=== PATIENT | male | born 1955 | race Caucasian/White ===

== ENCOUNTER 2016-08-17 00:48 | Emergency (ER) | payer MEDICAID ==
[~2016-08-17] VITALS: Ht 172.7 cm; Wt 112.5 kg
[2016-08-17 01:02] VITALS: BP 153/85
[2016-08-17] MEDS ORDERED: COLCHICINE 0.6 MG TABLET PO STA (01:38)
[2016-08-17] MEDS ORDERED: OXYcodone/APAP 5/325MG TABLET ONE (01:54)
[2016-08-17] MEDS ORDERED: COLC0.6T37 PO (01:58)
[2016-08-17] MEDS ORDERED: PRED5TAB19 PO (01:58)
[2016-08-17] MEDS ORDERED: OXYC-302 PO (01:58)
[2016-08-17] MEDS ORDERED: OXYcodone/APAP 5/325MG TABLET PO ONE (02:00)
== END 2016-08-17 02:32 | disposition home or self-care (01) ==
LOC: ED 02:01
DX: M10.00 Idiopathic gout, unspecified site (principal); M13.0 Polyarthritis, unspecified
CPT/HCPCS: 99284; J7512

== ENCOUNTER 2016-08-31 01:04 | Emergency (ER) | payer MEDICAID ==
[~2016-08-31] VITALS: Ht 175.3 cm; Wt 113.8 kg
[~2016-08-31 01:04] MED LIST: COLC0.6T37 PO; OXYC-302 PO; PRED5TAB19 PO
[2016-08-31] MEDS ORDERED: COLCHICINE 0.6 MG TABLET PO ONE ×2 (01:30→02:30)
[2016-08-31] MEDS ORDERED: IBUPROFEN 200 MG TABLET PO ONE (02:00)
[2016-08-31] MEDS ORDERED: IBUPROFEN 200 MG TABLET ONE (02:03)
[2016-08-31 02:50] VITALS: BP 145/81
== END 2016-08-31 02:46 | disposition home or self-care (01) ==
LOC: ED 02:08
DX: M10.9 Gout, unspecified (principal); M13.0 Polyarthritis, unspecified; I10 Essential (primary) hypertension
CPT/HCPCS: 99284

== ENCOUNTER 2016-09-10 23:35 | Emergency (ER) | payer MEDICAID ==
[~2016-09-10] VITALS: Ht 167.6 cm; Wt 111.0 kg
[2016-09-11] MEDS ORDERED: HYDROmorphone 1 MG/ML, 1ML IM ONE (00:30)
[2016-09-11] MEDS ORDERED: COLCHICINE 0.6 MG TABLET PO ONE ×2 (00:30→02:00)
[2016-09-11] MEDS ORDERED: HYDROmorphone 1 MG/ML, 1ML ONE (00:51)
[2016-09-11 02:00] VITALS: BP 124/62
== END 2016-09-11 02:41 | disposition home or self-care (01) ==
LOC: ED 09-11 01:04
DX: M13.0 Polyarthritis, unspecified (principal); M06.39 Rheumatoid nodule, multiple sites; M10.9 Gout, unspecified
CPT/HCPCS: 96372; 99283; J1170